=== PATIENT | male | born 1990 | race Caucasian/White ===

== ENCOUNTER 2018-08-12 09:38 | Emergency (ER) | payer OTHER ==
[2018-08-12] MEDS: IPRATROPIUM (NEB) 0.5 MG/2.5 ML AMP NEB (10:23)
[2018-08-12] MEDS: LEVALBUTEROL (NEB) 1.25 MG/0.5 ML AMP INH (10:23)
[2018-08-12] MEDS: predniSONE 20 MG TAB PO (10:25)
[2018-08-12 10:58] LABS: ADD MAN DIFF? NO
[2018-08-12 11:03] LABS: BASOPHIL # 0.1 10^3/ul (0.0-0.1); BASOPHILS % 0.3 % (0.0-2.0); EOSINOPHILS # 0.1 10^3/ul (0.0-0.5); EOSINOPHILS % 0.4 % (0.0-7.0); HEMATOCRIT 47.9 % (42.0-52.0); LYMPHOCYTES # 1.3 10^3/ul (0.8-2.9); LYMPHOCYTES % 7.6 % (15.0-51.0); MEAN CORPUSCULAR HEMOGLOBIN 27.2 pg (29.0-33.0); MEAN CORPUSCULAR HGB CONC 31.3 g/dl (32.0-37.0); MEAN CORPUSCULAR VOLUME 86.8 fl (82.0-101.0); MEAN PLATELET VOLUME 10.3 fl (7.4-10.4); MONOCYTE # 1.3 10^3/ul (0.3-0.9); MONOCYTES % 7.7 % (0.0-11.0); NEUTROPHIL # 14.1 10^3/ul (1.6-7.5); NEUTROPHILS % 83.5 % (39.0-77.0); PLATELET COUNT 210 10^3/UL (140-415); RED BLOOD COUNT 5.52 10^6/ul (4.70-6.10); RED CELL DISTRIBUTION WIDTH 12.9 % (11.5-14.5)
[2018-08-12 11:03] LABS: WHITE BLOOD COUNT 16.9 10^3/ul (4.8-10.8)
[2018-08-12 11:25] LABS: ANION GAP 12 (5-13); BLOOD UREA NITROGEN 11 mg/dl (7-20); CALCIUM 10.3 mg/dl (8.4-10.2); CARBON DIOXIDE 30 mmol/L (21-31); CHLORIDE 100 mmol/L (97-110); CREATININE 0.76 mg/dl (0.61-1.24); Estimated GFR > 60 mL/min (>60); GLUCOSE 108 mg/dl (70-220); POTASSIUM 4.7 mmol/L (3.5-5.1); SODIUM 142 mmol/L (135-144)
[2018-08-12 11:27] LABS: D-DIMER 332.13 ng/ml (<460)
[2018-08-12 11:38] LABS: TROPONIN-I < 0.012 ng/ml (0.000-0.120)
== END 2018-08-12 12:26 | disposition home or self-care (01) ==
LOC: FTE 09:38
DX: J45.901 Unspecified asthma with (acute) exacerbation (principal); R04.2 Hemoptysis; R06.02 Shortness of breath
CPT/HCPCS: 71045; 80048; 84484; 85025; 85378; 93005; 94664; 99285-25